=== PATIENT | male | born 1960 | race Caucasian/White ===

== ENCOUNTER 2016-02-22 12:15 | Day surgery (SDC) | payer OTHER ==
[~2016-02-22] VITALS: Ht 182.9 cm; Wt 120.6 kg
[2016-02-22] VITALS (12 sets, daily range): BP systolic 126–183; BP diastolic 77–97; PULSE 72–90; RESP 14–18; O2SAT 92–95
[~2016-02-22 12:15] MED LIST: CALC500T9 PO; ETAN50PE SQ; IBUP800T28 PO; OMEP20TA24 PO; OXYC1TAB24 PO; PARO20TA57 PO; TAMS0.4C98 PO
[2016-02-22] MEDS ORDERED: Ondansetron 2 mg/mL 2 mL Inj ONE (12:16)
[2016-02-22] MEDS ORDERED: Dexamethasone 4 mg/mL Inj ONE (12:16)
[2016-02-22] MEDS ORDERED: HYDROmorphone 2 mg/mL Inj ONE (12:16)
[2016-02-22] MEDS ORDERED: Rocuronium 10 mg/mL 5 mL Inj ONE (12:16)
[2016-02-22] MEDS ORDERED: Succinylcholine Chloride 20 mg/mL 5 mL Inj ONE (12:16)
[2016-02-22] MEDS ORDERED: fentaNYL-PF 50 mCg/mL 2 mL Inj ONE (12:16)
[2016-02-22] MEDS ORDERED: Propofol 10,000 mCg/mL 20 mL Inj ONE (12:16)
[2016-02-22] MEDS: Lactated Ringer's 1,000 ML IV SCH ×2 (13:26→15:42)
[2016-02-22] MEDS ORDERED: Ketorolac 15 mg/mL Inj IVPUSH ONE (15:15)
[2016-02-22] MEDS ORDERED: oxyCODONE-Acetamin 5-325 mg Tablet PO PRN (15:15)
[2016-02-22] MEDS ORDERED: Atropine 0.4 mg/mL Inj IVPUSH PRN (15:30)
[2016-02-22] MEDS ORDERED: HYDROmorphone 1 mg/mL Inj IVPUSH PRN (15:30)
[2016-02-22] MEDS ORDERED: hydrALAZINE 20 mg/mL Inj IVPUSH PRN (15:30)
[2016-02-22] MEDS ORDERED: EPHEDrine Sulfate 50 mg/mL Inj IVPUSH PRN (15:30)
[2016-02-22] MEDS ORDERED: Lactated Ringer's 500 ML IV PRN (15:30)
[2016-02-22] MEDS ORDERED: Lactated Ringer's 1,000 ML IV SCH (15:30)
[2016-02-22] MEDS ORDERED: Phenylephrine 10,000 mCg/mL Inj IVPUSH PRN (15:30)
[2016-02-22] MEDS ORDERED: Ondansetron 2 mg/mL 2 mL Inj IVPUSH PRN (15:30)
[2016-02-22] MEDS ORDERED: Labetalol 5 mg/mL 4 mL Inj IV PRN (15:30)
[2016-02-22] MEDS ORDERED: MetoCLOpramide 5 mg/mL 2 mL Inj IVPUSH PRN (15:30)
[2016-02-22] MEDS ORDERED: fentaNYL-PF 50 mCg/mL 2 mL Inj IVPUSH PRN (15:30)
--- NOTE | 2016-02-22 15:30 | PCM.HPANE ---
Patient Data Surgeon Admitting Provider: Attending Provider:Holger Pierre MD Primary Care Physician:Lalo Champagne MD Other Provider:Leilani Brightingham Anesthesia Reason for Visit Right Ankle Fracture Ht/WT & BMI Height (Feet): 6 Height (Inches): 0.00 Weight (Kilograms): 120.6 Body Mass Index 36.00 Allergies Coded Allergies: No Known Allergies (Verified Allergy, Unknown, 02/13/16) Past Anesthesia History Anesthesia History: Denies:: Abnormal Airway, Anesthesia Reactions, Difficult Intubation, Fam Anesthesia Reaction Diabetes History Hx Diabetes?: No MRSA MRSA: No Medications Hypertension Medication: No Home Meds Incl Beta Rafita: No Active Scripts oxyCODONE-Acetaminophen 5-325 mg 1 Each Tablet2 Tab PO Q6H PRN For Pain #60 TABLET Ref 0 Prov:Jt Burkett MD 02/14/16 Tamsulosin (Flomax)0.4 Mg Capsule0.4 Mg PO DAILY #30 CAPSULE Prov:Jt Burkett MD 02/14/16 Reported Medications Calcium Carbonate (Tums)500 Mg Tab.chew1,000 Mg PO DAILY PRN For Dyspepsia or Heartburn 30 Days 02/13/16 Omeprazole Magnesium (Prilosec Otc)20 Mg Tablet.dr20 Mg PO DAILY #1 PKG Ref 0 02/13/16 Paroxetine (Paxil)20 Mg Fqeqyo22 Mg PO DAILY Ref 0 02/13/16 Ibuprofen 800 Mg Acttcf979 Mg PO BID PRN For Pain Ref 0 02/13/16 Etanercept (Enbrel)50 Mg/1 Ml Pen.osctnq80 Mg SQ every 02/13/16 History History of ENT Problems?: No HEENT History: Denies:: Abnormal Airway Cataracts Difficult Intubation Dysphagia Glaucoma Hearing Problem Sinus Problem TMJ Hx of Heart Problems?: No Cardiovascular History: Denies:: Congestive Heart Failure Edema Hypertension Hx of Respiratory Problem?: No Respiratory History: Denies:: Asthma COPD Emphysema Oxygen Administration Pneumonia Tuberculosis Use of C-PAP Machine Use of Inhalers / NEBS Hx Neurologic Problems?: No Neurological History: Denies:: CVA Headaches Multiple Sclerosis Parkinson's Disease Seizures TIA Hx of GI Problems?: Yes Gastrointestinal History: Positive for:: Gastroesphageal Reflux Heartburn Denies:: Cirrhosis Gall Bladder Disease Gastrointestinal Bleeding Hiatal Hernia Liver Disease Rectal Bleeding Hx of Problems?: No Genitourinary History: Denies:: Kidney Stones Urinary Tract Infection Male Hx: Positive for:: Testicular Surgery (as child) Denies:: Prostate Problems Skin History: Positive for:: History Skin Disorders? (psoriasis- ) Denies:: Pressure Ulcers Hx Musculoskeletal Problems?: Yes Musculoskeletal History: Positive for:: Back Injury Musculoskeletal Trauma (right ankle fracture) Osteoarthritis (osteo psoriatic) Denies:: Degenerative Joint Fibromyalgia Joint Replacement Myasthenia Gravis Rheumatoid Arthritis Systemic Lupus Hx of Psycho/Social Problems?: Yes Psycho Social History: Positive for:: Anxiety Hx Surgeries?: Yes (tibia fx, hernia surgery) Hx Any Other Health Problems?: Yes Other History: Positive for:: Hospitalization Denies:: Cancer Thyroid Disease History Blood Transfusions: Positive for:: Accept Blood Products? Denies:: Blood Transfusions Hx Diabetes: No Hx Alcohol Use: YesAlcoholic Drinks Per Day: 1-2 drinks dailyHx Substance Use : No Smoking Status: Light Tobacco Smoker Have You Smoked inLast 12 mo: Yes (cigar) Stop/Bang S-Snoring: Do You Snore Loudly: No T-Tired: feel tired, fatigued: No O-Obsered: Observed not breath: No P-Blood Pressure: treated: No B- Body Mass Index > 35 kg/m2: Yes A- Age over 50: Yes N- Neck Large Circumference: No G- Gender Male: Yes KOJO Total Score: 3 KOJO Risk Assessment: High Risk, =/>3 Yes Risk Assessment Category Category 1A: Patient has history of documented sleep apnea, and HAS NOT received any narcotic, sedative or anesthesia administration during this stay. Category 1B: Patient has history of documented sleep apnea, and HAS received any narcotic , sedative or anesthesia administration during this stay Category 2: Patient has SUSPECTED Obstructive Sleep Apnea, and HAS received any narcotic , sedative or anesthesia administration during this stay. Category 3: Patient has SUSPECTED Obstructive Sleep Apnea and HAS NOT received narcotic, sedative or anesthesia administration during this stay. Category 4: Outpatient in Procedural Areas with known sleep apnea or who screen positive for High Risk via the STOP/BANG questionnaire. Exam Exam Vital Signs Vital Signs Date Time Temp Pulse Resp B/P Pulse Ox O2 Delivery O2 Flow Rate FiO2 02/22/16 13:21 36.6 85 18 139/87 95 Room Air General Appearance: Alert, Oriented X3, Cooperative, No Acute Distress HEENT/AIRWAY: MP 1, Other (hoyt) Lungs: Clear to Auscultation, Normal Air Movement Heart: Exam Unremarkable, Regular Rate/Rhythm, No Murmurs/Rubs/Gallops Meds/Labs/Diagnostics Admission Meds Current Medications Lactated Ringer's (Lr) 1,000 ml @ 120 mls/hr Q8H20M IV Last administered on t 13:26; Start 02/22/16 at 05:00; Stop 02/22/16 at 13:19; Status DC Plan Impression Patient chart reviewed, patient interviewed and anesthestic plan with risks, benefits, and alternatives discussed, and informed consent obtained. NPO Status: 2200 02/23 ASA Physical Status: ASA2 Mod Systemic Disease Anesthetic Plan: GA Bene/Risks/Altern/Consents: Yes HP Complete Prior to Induction: Yes Gavin Chowdhury MD Feb 22, 2016 13:54
[2016-02-22] MEDS: CeFAZolin Inj 3 GM in Dextrose 5% 50 ML IV ONE ×2 (15:53→15:58)
[2016-02-22] MEDS ORDERED: Bacitracin 50,000 unit Inj IRRIGATION ONE (16:17)
[2016-02-22] MEDS ORDERED: Ropivacaine-PF 0.5% 30 mL Inj INFILTRATE ONE (17:05)
--- NOTE | 2016-02-22 17:10 | PCM.ORTHOP ---
Orthopedic Operative Report Date of Service: Feb 22, 2016 Pre Operative Diagnosis Right ankle fracture/dislocation, trimalleolar equivalent Post Operative Diagnosis Same Procedure Right ankle open reduction internal fixation Surgeon Surgeon: Holger Pierre MD Assistants: Oneil Schumcaher Indication for Procedure Right ankle fracture dislocation Findings , Right ankle fracture, trimalleolar equivalent, displaced fibular fracture, less than 25% posterior malleolus fracture, deltoid avulsion fracture, posterior talus fracture Details of Procedure Indications: Shanique is a 55-year-old male who sustained a trimalleolar fracture. A clear explanation was given to the patient regarding the condition present, and the available conservative and surgical options. It was emphasized that the risks and benefits of surgery include but are not limited to infection, wound healing problems, damage to adjacent structures such as nerves, blood vessels and tendons, remote computer terminal operator disability and pain, arthritis, hypersensitivity, deep vein thrombosis, pulmonary embolism, broken hardware, failure of surgery, need for further procedures at time of surgery or later, cast related problems, loss of limb or life. The patient was given an explanation and the patient voiced understanding of what to expect after the procedure or surgery, the limitations in activities of daily living, the likely duration for post operative recovery and the instructions that are to be followed. At the end the patient was invited to seek clarification or ask further questions but there were none. The patient voiced understanding of the entire consultation. Description of Operation: The patient was brought to the operating room. Patient name and surgical site were confirmed. Preoperative antibiotics were given. The patient was placed supine on the operating table. General anesthesia was administered. A well padded tourniquet was placed on the leg. The leg was then prepped and draped in the usual sterile fashion. The leg was exsanguinated and the tourniquet was inflated. The lateral malleolus was addressed first. An incision was made over the lateral ankle. Subcutaneous dissection was performed down to the lateral malleolus. Care was taken to avoid injury to the superficial peroneal nerve. The fracture was cleaned of debris and interposed soft tissue. The fracture was reduced to anatomic alignment using reduction clamps and preliminary fixation techniques. There was comminution and the bone was severely osteopenic and not amenable to lag screw fixation. Fluoroscopy was used to confirm satisfactory reduction. A distal fibular Arthrex plate was then placed and secured in position using 3.5 mm fully threaded cortical screws proximally and 3.5 mm locking screws distally. Solid bony purchase was achieved with a combination of locking and nonlocking screws. The ankle joint was stressed and the syndesmosis was found to be stable along with no subluxation of the joint on the lateral view so the decision was made not to fix the posterior malleolus fracture which was stable. The tourniquet was deflated. Hemostasis was obtained with electrocautery. The wounds were thoroughly irrigated with bulb irrigation. The wounds were then closed in layers. The incisions were cleaned and dressed with Adaptic, gauze, and soft roll. A well padded plaster splint was then placed and wrapped with an Bhavik bandage. Estimated blood loss was 15 cc. There were no immediate complications. The patient was transferred to the PACU in stable condition. I was present for the entire procedure. Fluoroscopic evaluation was taken status post surgical fixation. 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 Without the qualified medication assistant being present, it would have extended the operative procedure and made the procedure technically more difficult to perform. Specimens Obtained: none Grafts, Implants: None Complications There were no periprocedural complications identified. Condition Stable Anesthetic Administered: GA Catheters: None Output, Estimated Blood Loss: 15 Blood Admin during surgery: No Surgical Cast or Splint: Well-padded Short Leg Splint Surgical Specimen Removed: No Specimen sent to Pathology: No copies to: Holger Pierre MD, Christopher L MD Feb 22, 2016 17:10
--- NOTE | 2016-02-22 17:44 | PCM.ANEP1 ---
Post Anesthesia Phase 1 PACU Phase 1 Assessment Date of Service: Feb 22, 2016 Vital Signs Vital Signs Date Time Temp Pulse Resp B/P Pulse Ox O2 Delivery O2 Flow Rate FiO2 02/22/16 13:21 36.6 85 18 139/87 95 Room Air Anesthetic Administered: GA Level of Alertness: Sleepy, easy to arouse SEO's with Equal Strength: Yes Pain: No Nausea or Vomiting: No Oxygen Delivery: Simple Mask Lungs: Clear to Auscultation, Normal Air Movement Summary VSS Gavin Chowdhury MD Feb 22, 2016 17:44
--- NOTE | 2016-02-22 17:45 | PCM.ANEP2 ---
Post Anesthesia Evaluation ASA/CMS Post Anesthesia VS in Patient's Normal Range?: Yes Resp Stable; Airway Patent?: Yes CV Function & Hydration Stable: Yes Mental Status Recovered?: Yes Pain control Satisfactory?: Yes N/V Control Satisfactory?: Yes Gavin Chowdhury MD Feb 22, 2016 17:45
== END 2016-02-22 23:59 | disposition home or self-care (01) ==
LOC: SAS 12:15
PROVIDERS: ATTEND Orthopaedic Surgery
DX: S82.851A Displaced trimalleolar fracture of right lower leg, initial encounter for closed fracture (principal); S93.04XA Dislocation of right ankle joint, initial encounter; W18.30XA Fall on same level, unspecified, initial encounter; Y92.814 Boat as the place of occurrence of the external cause; Y99.9 Unspecified external cause status; Y93.9 Activity, unspecified; F41.9 Anxiety disorder, unspecified; L40.59 Other psoriatic arthropathy; K21.9 Gastro-esophageal reflux disease without esophagitis; F17.210 Nicotine dependence, cigarettes, uncomplicated
CPT/HCPCS: 27814; 76000; C1713; J0330; J0690; J1100; J1170; J2405; J2795; J7120